=== PATIENT | female | born 1985 | race African-American/Black ===

== ENCOUNTER 2016-09-18 20:04 | Emergency (ER) | payer MEDICAID, OTHER ==
[~2016-09-18] VITALS: Ht 165.1 cm; Wt 57.0 kg
[~2016-09-18 20:04] MED LIST: AEROI INH; CEPH500C3 PO; IBUP800T23 PO; VENTAER INH
[2016-09-18 20:06] VITALS: BP 132/88; PULSE 93; RESP 15; TEMP 98; O2SAT 100
--- NOTE | 2016-09-18 22:23 | PD ---
HPI Chief Complaint: Injury Time Seen by Provider: 22:21 Travel History International Travel<30 days: No Contact w/Intl Traveler<30days: No Traveled to known affect area: No History of Present Illness HPI Patient comes in complaining of left ankle pain on the lateral aspect that began 2 days ago. Patient reports she first noticed the pain when she got home from work and believes she may have hit it on something while at work but uncertain on what. Patient states she again injured it today hitting it on the side of her bed. Patient applied ice to this with minimal relief of her symptoms. Patient having burning sensation without radiation of the lateral aspect of her left ankle. Denies numbness or tingling or other known trauma. PFSH Past Medical History Blood Disorders: No Anxiety: No Depression: Yes (AT AGE 18YRS) Cancer: No Cerebrovascular Accident: No Diabetes: No Endocrine: No Genitourinary: No Headaches: No Hypertension: Yes (1ST ) Immune Disorder: No Musculoskeletal: No Neurologic: No Psychiatric: No Reproductive: No Respiratory: No Migraines: No Seizures: No Sickle Cell Disease: No Thyroid Disease: No ?: Not : 3 Para: 2 Social History Alcohol Use: No Tobacco Use: Yes Substance Use: Yes (MARIHUANA -STOPPED 12 MONTHS AGO) Allergies-Medications (Allergen,Severity, Reaction): Coded Allergies: No Known Allergies (Verified , 09/18/16) Reported Meds & Prescriptions Reported Meds & Active Scripts Active No Active Prescriptions or Reported Medications Review of Systems Except as stated in HPI: all other systems reviewed are Neg Physical Exam Narrative GENERAL: Well-developed, well nourished, in no acute distress, and non-ill appearing. SKIN: Warm and dry. HEAD: Atraumatic. Normocephalic. EYES: Pupils equal and round. EOMI. No scleral icterus. No injection or drainage. ENT: No nasal bleeding or discharge. Mucous membranes pink and moist. NECK: Trachea midline. Supple. No nuclear rigidity. CARDIOVASCULAR: Dorsal pulses 2+ intact bilaterally. Capillary refill less than 2 seconds. RESPIRATORY: No accessory muscle use. No respiratory distress. MUSCULOSKELETAL: No obvious deformities. No clubbing. No cyanosis. No edema. Full range of motion. Ankle: Neagative anterior draw and Castro test. Negative Jeff's sign. No laxity noted with passive inversion and eversion of BL ankles. Negative squeeze test. Pulses equal BL distal to injury. Capillary refill less than 2 seconds distal to injury and equal BL. Sensation equal BL 1st web space. FROM of toes distal to injury and equal BL. NV intact distal to injury and equal BL. Dorsal pulses equal BL. Patient reports tenderness to palpation over the lateral aspect of left ankle. NEUROLOGICAL: Awake and alert. No obvious cranial nerve deficits. Motor grossly within normal limits. Normal speech. PSYCHIATRIC: Appropriate mood and affect; insight and judgment normal. Data Data Last Documented VS Vital Signs Date Time Temp Pulse Resp B/P Pulse Ox O2 Delivery O2 Flow Rate FiO2 09/18/16 22:27 16 09/18/16 20:06 98.0 93 132/88 100 Room Air Orders Ankle, Complete ([id number]) (09/18/16 ) Splint Or Brace Apply/Monitor (09/18/16 23:01) [facility] Medical Decision Making Medical Screen Exam Complete: Yes Emergency Medical Condition: Yes Differential Diagnosis Fracture, sprain, contusion, other Narrative Course The patient appears to have suffered a contusion of the extremity. There is no clinical evidence to suspect bony injury by exam. Radiographic examination revealed no fracture seen at this time. The patient has full range of motion on active and passive motions. There is no significant edema. There is no proximal or distal joint effusion. The distal extremity appears neurovascularly intact, without evidence of neurovascular injury nor compartment syndrome. Tendon exam also was intact. The patient was discharged and given warnings for vascular compromise. The patient is to follow up with their regular physician or Orthopedics. The patient agrees with plan. Patient in no obvious distress upon re-evaluation. All pertinent Radiology result(s) discussed with patient. Any questions/concerns in reference to patient diagnosis/condition discussed and clarified prior to patient's discharge. Reinforced sheer importance of close follow up with patient's primary physician or primary care clinic. Instructed patient to return to ED immediately, if symptoms return/worsen. Pt showed understanding of above instructions. Further instructions and recommendations were detailed in discharge paperwork. Pt ambulated without difficulty out of ED at discharge. Diagnosis Primary Impression: Contusion of left ankle, initial encounter Referrals: Orthopedist Primary Care Physician Patient Instructions: Contusion in Adults (ED), General Instructions Departure Forms: Work Release Enter return to work date: Sep 19, 2016 Additional Instructions: Follow-up with your primary care physician or orthopedic in 3-5 days for evaluation. Wear Miguel wrap as needed for comfort. Use [id number] Tylenol and/or ibuprofen as needed for pain. Follow instructions on the packaging. Apply ice to affected area 20 this prior as needed for pain. Return to the emergency department if symptoms get worse. Scripts No Active Prescriptions or Reported Meds Disposition: 01 DISCHARGE HOME Condition: Stable Julián Caraballo Sep 18, 2016 22:23
--- NOTE | 2016-09-18 22:51 | RADRPT ---
EXAM DATE/TIME: 09/18/2016 22:47 [facility] COMPARISON: No previous studies available for comparison. INDICATIONS : Left ankle pain, no known injury. MEDICAL HISTORY : None. SURGICAL HISTORY : None. ENCOUNTER: Initial ACUITY: 1 day PAIN SCORE: 3/10 LOCATION: Left lateral ankle. FINDINGS: Three view exam was performed of the left ankle. The bony structures are in normal alignment. No ev idence of fracture, dislocation. There is soft tissue swelling. The ankle mortise is intact. No rad iopaque foreign bodies are seen. Bony mineralization is normal. CONCLUSION: Soft tissue swelling without fracture. Sorin Sutherland MD on September 18, 2016 at 22:48 Board Certified Radiologist. This report was verified electronically.
== END 2016-09-18 23:12 | disposition home or self-care (01) ==
LOC: NEPB 20:04
DX: S90.02XA Contusion of left ankle, initial encounter (principal); F17.210 Nicotine dependence, cigarettes, uncomplicated; W22.03XA Walked into furniture, initial encounter; Y92.003 Bedroom of unspecified non-institutional (private) residence as the place of occurrence of the external cause
CPT/HCPCS: 73610; 99283